=== PATIENT | male | born 1960 | race Two or more races ===

== ENCOUNTER 2018-08-16 00:20 | Emergency (ER) | payer OTHER ==
--- NOTE | 2018-08-16 01:06 | EDM.PDOC ---
ED HPI GENERAL MEDICAL PROBLEM - General Chief Complaint: Lower Extremity Injury/Pain Stated Complaint: BUCKED OFF A HORSE Time Seen by Provider: 08/16/18 00:28 Source of Information: Reports: Patient, Family History Limitations: Reports: No Limitations - History of Present Illness INITIAL COMMENTS - FREE TEXT/NARRATIVE: This is a 57-year-old male. He was riding a horse this afternoon when the horse began to douglas. It threw him up in the air when he came down on the saddle landed on the left pelvis area and felt severe pain and felt like there wasn't something right. So he slid off a horse onto the ground. He did not hit his head he didn't injure anything else but since that time he has not been able to walk without severe pain in his lower back pelvis area or doesn't have so much pain in the anterior pelvis but the pain does radiate into his left hip though palpation of the left hip doesn't bother him. He has no pain seems to radiate down his left leg. Because of the pain he is not able to walk effectively. Even with crutches yesterday very small steps secondary to the pain. He denies any other acute symptoms. Left Pelvic Pain Score (Numeric/FACES): 10 - Related Data Allergies Allergy/AdvReac Type Severity Reaction Status Date / Time No Known Allergies Allergy Verified 08/16/18 00:30 Home Meds: Home Meds Acetaminophen/oxyCODONE [Percocet 325-5 MG] 1 - 2 each PO Q6H PRN #20 tab [Rx] Past Medical History Cardiovascular History: Reports: Hypertension Gastrointestinal History: Reports: GERD - Past Surgical History GI Surgical History: Reports: Appendectomy Social & Family History - Tobacco Use Smoking Status *Q: Current Every Day Smoker Years of Tobacco use: 45 Packs/Tins Daily: 0.1 - Alcohol Use Days Per Week of Alcohol Use: 3 Number of Drinks Per Day: 3 Total Drinks Per Week: 9 - Recreational Drug Use Recreational Drug Use: No Review of Systems - Review of Systems Review Of Systems: See Below Constitutional: Denies: Chills, Fever Eyes: Reports: No Symptoms Ears: Reports: No Symptoms Nose: Reports: No Symptoms Mouth/Throat: Reports: No Symptoms Respiratory: Reports: No Symptoms Cardiovascular: Reports: No Symptoms GI/Abdominal: Reports: No Symptoms Genitourinary: Reports: No Symptoms Musculoskeletal: Reports: Other (Pelvis pain) Skin: Reports: No Symptoms Neurological: Reports: No Symptoms Psychiatric: Reports: No Symptoms ED EXAM, GENERAL - Physical Exam Exam: See Below Exam Limited By: No Limitations General Appearance: Alert, WD/WN, Mild Distress Eye Exam: Bilateral Eye: Normal Inspection Ears: Normal External Exam Nose: Normal Inspection Throat/Mouth: Normal Lips, Normal Voice, No Airway Compromise Head: Normocephalic Neck: Supple, Non-Tender Respiratory/Chest: No Respiratory Distress Back Exam: Decreased Range of Motion, Other (He appears to be tender right over the left SI joint area, pushing the pubis area is slightly sore but is not painful, palpation of the left hip is not painful and there is no shortening of his left leg, he will not straight leg that left leg or the right leg secondary to pain in his lower left back) Extremities: Normal Inspection Neurological: Alert, Oriented Psychiatric: Normal Affect, Normal Mood Skin Exam: Warm, Dry Course - Vital Signs Last Recorded V/S: Last Vital Signs Temp 97.5 F 08/16/18 00:30 Pulse 79 08/16/18 00:30 Resp 20 08/16/18 00:30 BP 136/92 H 08/16/18 00:30 Pulse Ox 93 L 08/16/18 00:30 - Orders/Labs/Meds Orders: Active Orders 24 hr Category Date Time Status Communication Order [RC] STAT Care 08/16/18 01:47 Ordered Pelvis wo Cont [CT] Stat Exams 08/16/18 00:51 Taken DME for Discharge [COMM] Stat Oth 08/16/18 01:49 Ordered Meds: Medications Discontinued Medications Generic Name Dose Route Start Last Admin Trade Name Ehsanq PRN Reason Stop Dose Admin Hydromorphone HCl 1 mg 08/16/18 01:47 Dilaudid IM 08/16/18 01:48 ONETIME ONE - Radiology Interpretation Free Text/Narrative:: CT scan of the pelvis suggest symphysis pubis slightly widened and mild widening of the left SI joint. - Re-Assessments/Exams Free Text/Narrative Re-Assessment/Exam: 08/16/18 01:52 I spoke to the patient regarding the CT scan results. I also spoke to Dr. Adams and he suggested crutches and toe touching with the left leg. The patient is going back to [place] and I encouraged him to follow up with his doctor there as soon as he gets home. I gave him the written report of the CT scan. We will fit him with some crutches at this time I'll provide some pain medications. Departure - Departure Time of Disposition: 01:54 Disposition: Home, Self-Care 01 Condition: Fair Clinical Impression: Sprain of sacroiliac joint, initial encounter Sprain, symphysis pubis Qualifiers: Encounter type: initial encounter Qualified Code(s): S33.8XXA - Sprain of other parts of lumbar spine and pelvis, initial encounter - Discharge Information *PRESCRIPTION DRUG MONITORING PROGRAM REVIEWED*: No *COPY OF PRESCRIPTION DRUG MONITORING REPORT IN PATIENT PURA: No Prescriptions: Acetaminophen/oxyCODONE [Percocet 325-5 MG] 1 - 2 each PO Q6H PRN #20 tab PRN Reason: Pain Referrals: PCP,Not In Area [Primary Care Provider] - Forms: ED Department Discharge Additional Instructions: Usual crutches at all times, only toe touch with your left leg and do not bear weight on your left leg, ice to your lower back to help with the discomfort, use the pain medications as needed, as soon as you get home follow-up with your doctor and take your CT scan report so they can refer you to an waste specialist, return to the ER if needed - My Orders Last 24 Hours: My Active Orders 08/16/18 00:51 Pelvis wo Cont [CT] Stat 08/16/18 01:47 Communication Order [RC] STAT 08/16/18 01:49 DME for Discharge [COMM] Stat - Assessment/Plan Last 24 Hours: My Active Orders 08/16/18 00:51 Pelvis wo Cont [CT] Stat 08/16/18 01:47 Communication Order [RC] STAT 08/16/18 01:49 DME for Discharge [COMM] Stat
[2018-08-16] MEDS ORDERED: HYDROmorphone 1 MG/ML Syringe IM ONE (01:47)
--- NOTE | 2018-08-17 11:01 | CT ---
CT pelvis Technique: Multiple axial sections were obtained through the pelvis. Reconstructed coronal and sagittal images were reviewed. Findings: Slightly prominent joint space within the left sacroiliac joint is seen. Pubic symphysis is also slightly widened. Difficult to exclude minimal diastases. Mild degenerative change is seen within the sacroiliac joints as well as visualized lumbar spine. No acute fracture or other bony abnormality is seen. Impression: 1. Slightly prominent space within the left sacroiliac joint and pubic symphysis. Difficult to exclude mild pelvic diastasis. Please correlate if patient has any symptoms of unstable pelvis. 2. Mild degenerative change. 3. No acute fracture is seen. Diagnostic code #3 I agree with preliminary report from [facility], finalized on 08/16/18, 2:39 AM Central Time
== END 2018-08-16 02:15 | disposition home or self-care (01) ==
LOC: JD.ED 00:20
DX: S33.6XXA Sprain of sacroiliac joint, initial encounter (principal); S33.8XXA Sprain of other parts of lumbar spine and pelvis, initial encounter; I10 Essential (primary) hypertension; F17.210 Nicotine dependence, cigarettes, uncomplicated; Z90.49 Acquired absence of other specified parts of digestive tract; V80.010A Animal-rider injured by fall from or being thrown from horse in noncollision accident, initial encounter
CPT/HCPCS: 72192; 96372; 99284; J1170; 99283